=== PATIENT | male | born 1935 | race Caucasian/White ===

== ENCOUNTER → 2020-10-10 | Day surgery (SDC) | payer MEDICARE, OTHER ==
[~2020-10-10] MED LIST: ACTOS15 MG PO; ASPIRIN81 MG PO; BELLADONNA/OPIUM 30 MG SUPP RC ONE; CEFTRIAXONE 1 GM VIAL ONE; CYCLOBENZAPRINE5 MG PO; CYMBALTA30 MG; DETROL LA4 MG PO; FLOMAX0.4 MG PO; IOPAMIDOL 300MG/ML 50ML INFUS..BTL IV ONE; LIPITOR20 MG PO; NEURONTIN300 MG PO; NORVASC10 MG PO; PANTOPRAZOLE SO40 MG PO; ROBAXIN100 MG/1 M; SODIUM CHLORIDE 0.9% 50ML 50 ML ONE
[2020-10-10 09:32] LABS: BASOPHILS % 0.5 % (0.0-1.0); EOSINOPHILS # (AUTO) 0.2 (0.0-0.4); EOSINOPHILS % 2.5 % (0.0-6.0); HEMATOCRIT 30.4 % (38.2-49.6); LYMPHOCYTES # (AUTO) 1.7 (1.0-3.2); LYMPHOCYTES % 21.7 % (18.0-39.1); MEAN CORPUSCULAR HEMOGLOBIN 26.6 pg (28-32); MEAN CORPUSCULAR HGB CONC 29.6 g/dL (31-35); MEAN CORPUSCULAR VOLUME 89.9 fL (81-99); MONOCYTES # (AUTO) 0.7 (0.2-0.8); MONOCYTES % 9.1 % (4.4-11.3); NEUTROPHILS % 65.9 % (38.7-80.0); PLATELET COUNT 235 x10e3/uL (140-360); RED BLOOD COUNT 3.38 x10e6/uL (4.3-5.7); RED CELL DISTRIBUTION WIDTH 25.2 % (11.7-14.4)
[2020-10-10 09:57] LABS: ALBUMIN 2.8 g/dL (3.5-5.0); ALBUMIN/GLOBULIN RATIO 0.8 (0.8-2.0); ANION GAP 13.2 mmol/L (8-16); CREATININE, SERUM 1.15 mg/dL (0.72-1.25); POTASSIUM 4.2 mmol/L (3.5-5.1)
[2020-10-10 13:25] VITALS: BP 134/71
== END | disposition home or self-care (01) ==
LOC: OR 08:00
PROVIDERS: ATTEND Urology
DX: N35.919 Unspecified urethral stricture, male, unspecified site (principal); N13.30 Unspecified hydronephrosis; N32.3 Diverticulum of bladder; N20.0 Calculus of kidney; N13.8 Other obstructive and reflux uropathy; N32.89 Other specified disorders of bladder; R35.1 Nocturia; N39.0 Urinary tract infection, site not specified; N32.0 Bladder-neck obstruction; N39.41 Urge incontinence; N52.9 Male erectile dysfunction, unspecified; I10 Essential (primary) hypertension; K21.9 Gastro-esophageal reflux disease without esophagitis; E11.9 Type 2 diabetes mellitus without complications; E66.9 Obesity, unspecified; I49.3 Ventricular premature depolarization; F32.9 Major depressive disorder, single episode, unspecified; Z88.1 Allergy status to other antibiotic agents; Z86.73 Personal history of transient ischemic attack (TIA), and cerebral infarction without residual deficits; Z01.810 Encounter for preprocedural cardiovascular examination; Z01.812 Encounter for preprocedural laboratory examination; Z01.818 Encounter for other preprocedural examination; Z20.822 Contact with and (suspected) exposure to COVID-19; Z79.82 Long term (current) use of aspirin; Z87.442 Personal history of urinary calculi; Z85.46 Personal history of malignant neoplasm of prostate; Z98.890 Other specified postprocedural states; Z84.1 Family history of disorders of kidney and ureter
CPT/HCPCS: 36415; 52281; 71046; 74018; 74420; 80053; 84152; 85025; 87086; 87186; 93005; C1758; J0696; Q9967; U0002

== ENCOUNTER 2020-11-02 20:46 | Inpatient (IN) | payer MEDICARE, OTHER ==
[~2020-11-02] VITALS: Ht 190.5 cm; Wt 93.0 kg
[~2020-11-02 20:46] MED LIST changes: -BELLADONNA/OPIUM 30 MG SUPP RC ONE; -CEFTRIAXONE 1 GM VIAL ONE; -IOPAMIDOL 300MG/ML 50ML INFUS..BTL IV ONE; -SODIUM CHLORIDE 0.9% 50ML 50 ML ONE
[2020-11-02] MEDS ORDERED: CEFTRIAXONE 1 GM in SODIUM CHLORIDE 0.9% 50ML 50 ML IV SCH (22:00)
[2020-11-02 22:15] LABS: BASOPHILS # (AUTO) 0.1 (0.0-0.1); BASOPHILS % 0.9 % (0.0-1.0); EOSINOPHILS # (AUTO) 0.3 (0.0-0.4); EOSINOPHILS % 3.8 % (0.0-6.0); HEMATOCRIT 36.5 % (38.2-49.6); HEMOGLOBIN 10.8 g/dL (14.0-18.0); LYMPHOCYTES # (AUTO) 2.5 (1.0-3.2); MEAN CORPUSCULAR HEMOGLOBIN 27.7 pg (28-32); MEAN CORPUSCULAR HGB CONC 29.6 g/dL (31-35); MEAN CORPUSCULAR VOLUME 93.6 fL (81-99); MONOCYTES # (AUTO) 0.6 (0.2-0.8); MONOCYTES % 7.7 % (4.4-11.3); NEUTROPHILS # (AUTO) 4.1 (2.1-6.9); NEUTROPHILS % 54.3 % (38.7-80.0); PLATELET COUNT 199 x10e3/uL (140-360); RED CELL DISTRIBUTION WIDTH 20.8 % (11.7-14.4)
[2020-11-02 22:26] LABS: INR 0.95; PROTHROMBIN TIME 12.9 seconds (11.9-14.5)
[2020-11-02 22:27] LABS: PARTIAL THROMBOPLASTIN TIME 29.1 seconds (23.8-35.5)
[2020-11-02] MEDS: PIPERACILLIN/TAZOBACTAM 3.375 GM in SODIUM CHLORIDE 0.9% 50ML 50 ML IV SCH (22:30)
[2020-11-02 22:31] LABS: ANION GAP 11.7 mmol/L (8-16); CALCIUM 8.9 mg/dL (8.4-10.2); CREATININE, SERUM 1.17 mg/dL (0.72-1.25); POTASSIUM 3.7 mmol/L (3.5-5.1)
[2020-11-02] MEDS ORDERED: MORPHINE SULFATE INJ 2 MG/ML SYR IV STA (22:32)
[2020-11-02] MEDS ORDERED: ONDANSETRON HCL INJ 2MG/ML 2ML 2 MG/ML VIAL IV STA (22:32)
[2020-11-02] MEDS ORDERED: SODIUM CHLORIDE 0.9% 50ML 50 ML ONE (22:39)
[2020-11-02] MEDS ORDERED: SODIUM CHLORIDE 0.9% 1000ML 1,000 ML IV SCH (22:45)
[2020-11-02] MEDS ORDERED: MORPHINE SULFATE INJ 2 MG/ML SYR IV PRN (22:45)
[2020-11-03] VITALS (8 sets, daily range): BP systolic 117–159; BP diastolic 61–94
[2020-11-03] MEDS ORDERED: HYDROMORPHONE 1MG/1ML INJ IV PRN (01:00)
[2020-11-03] MEDS ORDERED: ONDANSETRON HCL INJ 2MG/ML 2ML 2 MG/ML VIAL IV PRN (02:00)
[2020-11-03 04:04] LABS: CLARITY,URINE CLEAR (CLEAR); COLOR,URINE YELLOW (YELLOW); KETONES,URINE NEGATIVE (NEGATIVE); LEUKOCYTE ESTERASE ,URINE NEGATIVE (NEGATIVE); NITRITE,URINE NEGATIVE (NEGATIVE); PROTEIN,URINE DIPSTICK NEGATIVE (NEGATIVE); URINE UROBILINOGEN 0.2 mg/dL (0.2 - 1)
[2020-11-03 04:35] LABS: BACTERIA,URINE FEW /HPF; EPITHELIAL CELLS,URINE FEW /LPF; RBC,URINE >50 /HPF (0-5)
[2020-11-03] MEDS: PIPERACILLIN/TAZOBACTAM 3.375 GM in SODIUM CHLORIDE 0.9% 50ML 50 ML IV SCH ×3 (05:41→22:08)
[2020-11-03 08:37] LABS: BASOPHILS % 0.7 % (0.0-1.0); EOSINOPHILS # (AUTO) 0.2 (0.0-0.4); EOSINOPHILS % 3.6 % (0.0-6.0); HEMATOCRIT 35.8 % (38.2-49.6); HEMOGLOBIN 10.4 g/dL (14.0-18.0); LYMPHOCYTES # (AUTO) 1.8 (1.0-3.2); LYMPHOCYTES % 32.7 % (18.0-39.1); MEAN CORPUSCULAR HEMOGLOBIN 27.6 pg (28-32); MEAN CORPUSCULAR HGB CONC 29.1 g/dL (31-35); MONOCYTES # (AUTO) 0.4 (0.2-0.8); NEUTROPHILS % 54.8 % (38.7-80.0); PLATELET COUNT 175 x10e3/uL (140-360); RED BLOOD COUNT 3.77 x10e6/uL (4.3-5.7); RED CELL DISTRIBUTION WIDTH 20.9 % (11.7-14.4)
[2020-11-03 08:57] LABS: ANION GAP 9.5 mmol/L (8-16); CALCIUM 8.6 mg/dL (8.4-10.2); CREATININE, SERUM 1.16 mg/dL (0.72-1.25); POTASSIUM 3.5 mmol/L (3.5-5.1)
[2020-11-03] MEDS ORDERED: GABAPENTIN 300 MG CAP PO SCH (09:00)
[2020-11-03] MEDS ORDERED: CYCLOBENZAPRINE HCL 10 MG TAB PO SCH (09:30)
[2020-11-03] MEDS: PANTOPRAZOLE SOD 40 MG TABEC PO SCH (10:00)
[2020-11-03] MEDS: DULOXETINE HCL 30 MG DELAYED RELEASE PO SCH (10:00)
[2020-11-03] MEDS: AMLODIPINE BESYLATE 10 MG TAB PO SCH (10:00)
[2020-11-03] MEDS: PIOGLITAZONE HCL 15 MG TAB PO SCH (10:00)
[2020-11-03] MEDS: GABAPENTIN 300 MG CAP PO SCH (16:46)
[2020-11-03] MEDS: METHOCARBAMOL 500 MG TAB PO SCH (16:47)
[2020-11-03] MEDS: ATORVASTATIN 40 MG TAB PO SCH (21:00)
[2020-11-03] MEDS: TAMSULOSIN HCL 0.4 MG CAP PO SCH (21:00)
[2020-11-04] VITALS: BP 140/37
[2020-11-04 04:00] VITALS: BP 148/73
[2020-11-04 05:22] LABS: BASOPHILS # (AUTO) 0.1 (0.0-0.1); EOSINOPHILS # (AUTO) 0.3 (0.0-0.4); EOSINOPHILS % 5.3 % (0.0-6.0); HEMOGLOBIN 10.5 g/dL (14.0-18.0); LYMPHOCYTES % 31.4 % (18.0-39.1); MEAN CORPUSCULAR HEMOGLOBIN 27.9 pg (28-32); MEAN CORPUSCULAR VOLUME 93.1 fL (81-99); MONOCYTES # (AUTO) 0.5 (0.2-0.8); MONOCYTES % 7.2 % (4.4-11.3); NEUTROPHILS # (AUTO) 3.4 (2.1-6.9); NEUTROPHILS % 54.8 % (38.7-80.0); PLATELET COUNT 168 x10e3/uL (140-360); RED BLOOD COUNT 3.76 x10e6/uL (4.3-5.7); RED CELL DISTRIBUTION WIDTH 20.7 % (11.7-14.4)
[2020-11-04 05:51] LABS: ALBUMIN 2.7 g/dL (3.5-5.0); ANION GAP 10.7 mmol/L (8-16); CALCIUM 8.8 mg/dL (8.4-10.2); CREATININE, SERUM 1.1 mg/dL (0.72-1.25); POTASSIUM 3.7 mmol/L (3.5-5.1)
[2020-11-04 07:48] VITALS: BP 136/60
[2020-11-04] MEDS: PIPERACILLIN/TAZOBACTAM 2.25 GM in SODIUM CHLORIDE 0.9% 50ML 50 ML IV SCH ×2 (08:00→16:30)
[2020-11-04 08:01] VITALS: BP 136/60
[2020-11-04] MEDS: GABAPENTIN 300 MG CAP PO SCH ×2 (09:00→16:31)
[2020-11-04] MEDS: METHOCARBAMOL 500 MG TAB PO SCH ×2 (09:00→16:31)
[2020-11-04] MEDS ORDERED: LISINOPRIL 20 MG TAB PO SCH (09:00)
[2020-11-04] MEDS ORDERED: LIDOCAINE HCL 1% LOCAL INJ 20 ML VIAL ONE (09:55)
[2020-11-04] MEDS ORDERED: IOPAMIDOL 300MG/ML 100 ML INFUS..BTL IV ONE (09:55)
[2020-11-04] MEDS ORDERED: SODIUM CHLORIDE 0.9% 250ML 250 ML ONE (09:56)
[2020-11-04] MEDS ORDERED: SODIUM CHLORIDE 0.9% 500ML 500 ML ONE (09:56)
[2020-11-04] MEDS ORDERED: FENTANYL CITRATE/PF 100MCG/2 ML INJ ONE (10:32)
[2020-11-04] MEDS ORDERED: MIDAZOLAM HCL 2 MG/2 ML VIAL ONE (10:32)
[2020-11-04] MEDS: DULOXETINE HCL 30 MG DELAYED RELEASE PO SCH (16:29)
[2020-11-04] MEDS: PIOGLITAZONE HCL 15 MG TAB PO SCH (16:29)
[2020-11-04] MEDS: PANTOPRAZOLE SOD 40 MG TABEC PO SCH (16:30)
[2020-11-04] MEDS: AMLODIPINE BESYLATE 10 MG TAB PO SCH (16:31)
[2020-11-04] MEDS: HYDROCODONE/APAP 5MG-325MG TAB PO PRN ×2 (16:35→21:32)
[2020-11-04 20:00] VITALS: BP 140/63
[2020-11-04 20:10] VITALS: BP 140/63
[2020-11-04] MEDS: ATORVASTATIN 40 MG TAB PO SCH (21:19)
[2020-11-04] MEDS: TAMSULOSIN HCL 0.4 MG CAP PO SCH (21:19)
[2020-11-05] VITALS: BP 125/65
[2020-11-05] MEDS: PIPERACILLIN/TAZOBACTAM 2.25 GM in SODIUM CHLORIDE 0.9% 50ML 50 ML IV SCH (00:01)
[2020-11-05 04:00] VITALS: BP 133/75
[2020-11-05 06:31] LABS: BASOPHILS # (AUTO) 0.1 (0.0-0.1); BASOPHILS % 0.9 % (0.0-1.0); EOSINOPHILS # (AUTO) 0.2 (0.0-0.4); HEMATOCRIT 38.6 % (38.2-49.6); HEMOGLOBIN 11.5 g/dL (14.0-18.0); LYMPHOCYTES # (AUTO) 1.9 (1.0-3.2); LYMPHOCYTES % 24.2 % (18.0-39.1); MEAN CORPUSCULAR HEMOGLOBIN 27.9 pg (28-32); MEAN CORPUSCULAR HGB CONC 29.8 g/dL (31-35); MEAN CORPUSCULAR VOLUME 93.7 fL (81-99); MONOCYTES # (AUTO) 0.6 (0.2-0.8); MONOCYTES % 7.8 % (4.4-11.3); NEUTROPHILS # (AUTO) 5.1 (2.1-6.9); NEUTROPHILS % 63.8 % (38.7-80.0); PLATELET COUNT 161 x10e3/uL (140-360); RED BLOOD COUNT 4.12 x10e6/uL (4.3-5.7); RED CELL DISTRIBUTION WIDTH 20.4 % (11.7-14.4)
[2020-11-05 06:49] LABS: ANION GAP 13.8 mmol/L (8-16); CALCIUM 8.9 mg/dL (8.4-10.2); CREATININE, SERUM 0.97 mg/dL (0.72-1.25); POTASSIUM 3.8 mmol/L (3.5-5.1)
[2020-11-05 07:48] VITALS: BP 153/75
[2020-11-05] MEDS ORDERED: HYDROCODON-ACE1 EA11 PO (08:03)
[2020-11-05 08:38] LABS: THYROID STIMULATING HORMONE 1.534 uIU/mL (0.350-4.940)
[2020-11-05 09:00] VITALS: BP 153/75
[2020-11-05] MEDS ORDERED: OXYBUTYNIN CHLORIDE 5 MG TAB PO SCH (09:00)
== END 2020-11-05 09:38 | disposition home or self-care (01) | DRG 697 ==
LOC: ER 20:52 → ERHOLD 22:37 → MED/SURG3 11-03 00:18
PROVIDERS: ADMIT Internal Medicine; ATTEND Internal Medicine
PROC: 0T9B30Z Drainage of Bladder with Drainage Device, Percutaneous Approach (ICD-10-PCS; principal; 2020-11-04)
PROC: BT40ZZZ Ultrasonography of Bladder (ICD-10-PCS; 2020-11-04)
DX: N35.919 Unspecified urethral stricture, male, unspecified site (principal); N12 Tubulo-interstitial nephritis, not specified as acute or chronic; S37.022A Major contusion of left kidney, initial encounter; E11.22 Type 2 diabetes mellitus with diabetic chronic kidney disease; I12.9 Hypertensive chronic kidney disease with stage 1 through stage 4 chronic kidney disease, or unspecified chronic kidney disease; N18.30 Chronic kidney disease, stage 3 unspecified; Z86.73 Personal history of transient ischemic attack (TIA), and cerebral infarction without residual deficits; K21.9 Gastro-esophageal reflux disease without esophagitis; E11.42 Type 2 diabetes mellitus with diabetic polyneuropathy; E78.5 Hyperlipidemia, unspecified; Z85.46 Personal history of malignant neoplasm of prostate; Z88.1 Allergy status to other antibiotic agents; Z88.8 Allergy status to other drugs, medicaments and biological substances; D64.9 Anemia, unspecified; R82.81 Pyuria; N28.1 Cyst of kidney, acquired; K80.80 Other cholelithiasis without obstruction; B96.5 Pseudomonas (aeruginosa) (mallei) (pseudomallei) as the cause of diseases classified elsewhere; N28.9 Disorder of kidney and ureter, unspecified; R33.8 Other retention of urine
CPT/HCPCS: 36415; 51102; 74176; 74470; 76942; 80048; 80053; 80061; 81001; 83036; 84443; 85025; 85610; 85730; 87086; 87186; 99152; 99153; 99284; J1170; J2001; J2250; J2270; J2405; J2543; J3010; J7030; J7040; J7050; Q9967; U0002

== ENCOUNTER 2022-06-28 10:42 | Outpatient (RCR) | payer MEDICARE, OTHER ==
[~2022-06-28 10:42] MED LIST changes: +HYDROCODON-ACE1 EA11 PO
== END 2022-07-07 ==
LOC: PT 10:42
PROVIDERS: ATTEND Internal Medicine
DX: R26.89 Other abnormalities of gait and mobility (principal)

== ENCOUNTER 2022-07-08 08:46 | Outpatient (RCR) | payer MEDICARE, OTHER | END 2022-08-06 23:59 | disposition home or self-care (01) | LOC: PT 08:46 | PROVIDERS: ATTEND Internal Medicine | DX: R26.89 Other abnormalities of gait and mobility (principal) ==

== ENCOUNTER 2022-07-08 08:48 | Outpatient (RCR) | payer MEDICARE, OTHER | END 2022-08-06 23:59 | disposition home or self-care (01) | LOC: PT 08:48 | PROVIDERS: ATTEND Internal Medicine | DX: R26.89 Other abnormalities of gait and mobility (principal) ==

== ENCOUNTER 2022-07-14 10:45 | Outpatient (RCR) | payer MEDICARE, OTHER | END 2022-08-06 | LOC: PT 10:45 | PROVIDERS: ATTEND Internal Medicine | DX: R26.89 Other abnormalities of gait and mobility (principal) ==

== ENCOUNTER 2022-11-19 03:58 | Inpatient (IN) | payer MEDICARE, OTHER ==
[~2022-11-19] VITALS: Ht 190.5 cm; Wt 93.0 kg
[2022-11-19] VITALS (7 sets, daily range): BP systolic 112–169; BP diastolic 61–72; PULSE 53–72; RESP 15–18; TEMP 97.1–98.5; O2SAT 95–100
[2022-11-19] MEDS ORDERED: ONDANSETRON HCL INJ 2MG/ML 2ML 2 MG/ML VIAL IV STA ×2 (04:01→04:58)
[2022-11-19] MEDS ORDERED: SODIUM CHLORIDE 0.9% 1000ML 2,000 ML IV STA (04:01)
[2022-11-19 04:32] LABS: BASOPHILS % 0.4 % (0.0-1.0); EOSINOPHILS % 0.1 % (0.0-6.0); HEMATOCRIT 44.1 % (38.2-49.6); HEMOGLOBIN 15.1 g/dL (14.0-18.0); LYMPHOCYTES % 21.2 % (18.0-39.1); MEAN CORPUSCULAR HEMOGLOBIN 28.9 pg (28-32); MEAN CORPUSCULAR HGB CONC 34.2 g/dL (31-35); MEAN CORPUSCULAR VOLUME 84.3 fL (81-99); MONOCYTES # (AUTO) 0.5 (0.2-0.8); MONOCYTES % 5.6 % (4.4-11.3); NEUTROPHILS # (AUTO) 6.9 (2.1-6.9); NEUTROPHILS % 72.5 % (38.7-80.0); PLATELET COUNT 198 x10e3/uL (140-360); RED BLOOD COUNT 5.23 x10e6/uL (4.3-5.7); RED CELL DISTRIBUTION WIDTH 14.4 % (11.7-14.4); WHITE BLOOD COUNT 9.56 x10e3/uL (4.8-10.8)
[2022-11-19 04:49] LABS: ALBUMIN 4.3 g/dL (3.5-5.0); ALBUMIN/GLOBULIN RATIO 1.4 (0.8-2.0); ANION GAP 17.9 mmol/L (8-16); CALCIUM 9.6 mg/dL (8.4-10.2); CREATININE, SERUM 1.24 mg/dL (0.72-1.25); POTASSIUM 3.9 mmol/L (3.5-5.1)
[2022-11-19] MEDS ORDERED: Morphine 4mg INJECTION 4 MG/ML INJ IV STA (04:58)
[2022-11-19] MEDS ORDERED: IOPAMIDOL 370 MG/ML 100 ML INFUS..BTL INJ ONE (05:04)
[2022-11-19] MEDS: SODIUM CHLORIDE 0.9% 1000ML 1,000 ML IV SCH ×3 (06:22→22:00)
[2022-11-19] MEDS: Morphine 4mg INJECTION 4 MG/ML INJ IV PRN ×2 (08:52→12:54)
[2022-11-19] MEDS: ONDANSETRON HCL INJ 2MG/ML 2ML 2 MG/ML VIAL IV PRN ×3 (08:52→20:32)
[2022-11-19 09:16] LABS: BACTERIA,URINE MODERATE /HPF; CLARITY,URINE SL CLOUDY (CLEAR); COLOR,URINE YELLOW (YELLOW); EPITHELIAL CELLS,URINE FEW /LPF; KETONES,URINE 2+ (NEGATIVE); LEUKOCYTE ESTERASE ,URINE NEGATIVE (NEGATIVE); NITRITE,URINE NEGATIVE (NEGATIVE); PROTEIN,URINE DIPSTICK NEGATIVE (NEGATIVE); URINE UROBILINOGEN 0.2 mg/dL (0.2 - 1)
[2022-11-19 09:55] LABS: CHOL/HDL RATIO 2.3 (3.9-4.7)
[2022-11-19 10:05] LABS: B-TYPE NATRIURETIC PEPTIDE2 235.9 pg/mL (0-100)
[2022-11-19] MEDS ORDERED: OXYBUTYNIN CHLOR5 MG PO (16:36)
[2022-11-19] MEDS ORDERED: DESVENLAFAXINE50 MG PO (16:36)
[2022-11-19] MEDS ORDERED: CYCLOBENZAPRINE10 MG PO (16:36)
[2022-11-19] MEDS ORDERED: METHADONE HCL5 MG PO (16:36)
[2022-11-19] MEDS ORDERED: CONSTULOSE10 GM/15 M PO (16:36)
[2022-11-19] MEDS ORDERED: AMITRIPTYLINE H25 MG PO (16:36)
[2022-11-19] MEDS ORDERED: OMEPRAZOLE20 MG PO (16:36)
[2022-11-19] MEDS ORDERED: LOSARTAN POTASS50 MG PO (16:36)
[2022-11-19] MEDS ORDERED: ESZOPICLONE3 MG PO (16:36)
[2022-11-19] MEDS: AMLODIPINE BESYLATE 10 MG TAB PO SCH (17:23)
[2022-11-20] VITALS (8 sets, daily range): BP systolic 135–175; BP diastolic 61–79; PULSE 51–72; RESP 16–20; TEMP 97.1–98.2; O2SAT 93–100
[2022-11-20] MEDS: Morphine 4mg INJECTION 4 MG/ML INJ IV PRN ×2 (00:08→20:37)
[2022-11-20] MEDS: ATORVASTATIN 40 MG TAB PO SCH ×2 (00:09→20:22)
[2022-11-20 07:25] LABS: BASOPHILS # (AUTO) 0.1 (0.0-0.1); BASOPHILS % 0.6 % (0.0-1.0); EOSINOPHILS # (AUTO) 0.1 (0.0-0.4); EOSINOPHILS % 1.1 % (0.0-6.0); HEMATOCRIT 39.6 % (38.2-49.6); HEMOGLOBIN 12.8 g/dL (14.0-18.0); LYMPHOCYTES # (AUTO) 2.3 (1.0-3.2); LYMPHOCYTES % 25.5 % (18.0-39.1); MEAN CORPUSCULAR HEMOGLOBIN 28.5 pg (28-32); MEAN CORPUSCULAR HGB CONC 32.3 g/dL (31-35); MEAN CORPUSCULAR VOLUME 88.2 fL (81-99); MONOCYTES # (AUTO) 0.7 (0.2-0.8); MONOCYTES % 8.2 % (4.4-11.3); NEUTROPHILS # (AUTO) 5.7 (2.1-6.9); NEUTROPHILS % 64.3 % (38.7-80.0); PLATELET COUNT 166 x10e3/uL (140-360); RED BLOOD COUNT 4.49 x10e6/uL (4.3-5.7); WHITE BLOOD COUNT 8.89 x10e3/uL (4.8-10.8)
[2022-11-20] MEDS ORDERED: PANTOPRAZOLE SOD 40 MG TABEC PO SCH ×2 (07:30→09:00)
[2022-11-20 07:59] LABS: ALBUMIN 3.2 g/dL (3.5-5.0); ALBUMIN/GLOBULIN RATIO 1.2 (0.8-2.0); ANION GAP 11.6 mmol/L (8-16); CALCIUM 8.5 mg/dL (8.4-10.2); CREATININE, SERUM 1.07 mg/dL (0.72-1.25); POTASSIUM 3.6 mmol/L (3.5-5.1)
[2022-11-20] MEDS: SODIUM CHLORIDE 0.9% 1000ML 1,000 ML IV SCH ×3 (08:37→20:24)
[2022-11-20] MEDS: AMLODIPINE BESYLATE 10 MG TAB PO SCH (09:40)
[2022-11-20] MEDS: OXYBUTYNIN CHLORIDE 5 MG TAB PO SCH (20:21)
[2022-11-20] MEDS: ONDANSETRON HCL INJ 2MG/ML 2ML 2 MG/ML VIAL IV PRN (20:53)
[2022-11-21] VITALS (10 sets, daily range): BP systolic 107–156; BP diastolic 56–86; PULSE 57–95; RESP 16–20; TEMP 97.9–98.7; O2SAT 96–99
[2022-11-21] MEDS: METOCLOPRAMIDE HCL 10 MG/2ML VIAL IV SCH ×4 (04:48→17:22)
[2022-11-21] MEDS: SODIUM CHLORIDE 0.9% 1000ML 1,000 ML IV SCH ×3 (06:00→22:00)
[2022-11-21] MEDS: OXYBUTYNIN CHLORIDE 5 MG TAB PO SCH ×2 (08:49→17:21)
[2022-11-21] MEDS: AMLODIPINE BESYLATE 10 MG TAB PO SCH (08:50)
[2022-11-21 09:25] LABS: BASOPHILS % 0.4 % (0.0-1.0); EOSINOPHILS # (AUTO) 0.2 (0.0-0.4); HEMATOCRIT 41.4 % (38.2-49.6); HEMOGLOBIN 13.7 g/dL (14.0-18.0); LYMPHOCYTES # (AUTO) 1.6 (1.0-3.2); LYMPHOCYTES % 17.5 % (18.0-39.1); MEAN CORPUSCULAR HEMOGLOBIN 28.9 pg (28-32); MEAN CORPUSCULAR HGB CONC 33.1 g/dL (31-35); MEAN CORPUSCULAR VOLUME 87.3 fL (81-99); MONOCYTES # (AUTO) 0.6 (0.2-0.8); MONOCYTES % 7.1 % (4.4-11.3); NEUTROPHILS # (AUTO) 6.6 (2.1-6.9); NEUTROPHILS % 72.8 % (38.7-80.0); PLATELET COUNT 172 x10e3/uL (140-360); RED BLOOD COUNT 4.74 x10e6/uL (4.3-5.7); RED CELL DISTRIBUTION WIDTH 14.6 % (11.7-14.4); WHITE BLOOD COUNT 9.04 x10e3/uL (4.8-10.8)
[2022-11-21 09:47] LABS: ALBUMIN 3.2 g/dL (3.5-5.0); ALBUMIN/GLOBULIN RATIO 1.1 (0.8-2.0); ANION GAP 10.7 mmol/L (8-16); CALCIUM 8.6 mg/dL (8.4-10.2); CREATININE, SERUM 1.02 mg/dL (0.72-1.25); POTASSIUM 3.7 mmol/L (3.5-5.1)
[2022-11-21] MEDS: ATORVASTATIN 40 MG TAB PO SCH (20:20)
[2022-11-21] MEDS: Morphine 4mg INJECTION 4 MG/ML INJ IV PRN (22:22)
[2022-11-21] MEDS ORDERED: BISACODYL 5 MG TAB EC PO ONE (23:45)
[2022-11-22] VITALS (9 sets, daily range): BP systolic 135–160; BP diastolic 55–83; PULSE 60–71; RESP 16–19; TEMP 97.8–99; O2SAT 98–100
[2022-11-22] MEDS: METOCLOPRAMIDE HCL 10 MG/2ML VIAL IV SCH ×4 (00:16→18:09)
[2022-11-22] MEDS ORDERED: BISACODYL 5 MG TAB EC PO ONE (00:30)
[2022-11-22] MEDS ORDERED: CITRATE OF MAGNESIA 300ML BOTTLE PO ONE (05:00)
[2022-11-22] MEDS: SODIUM CHLORIDE 0.9% 1000ML 1,000 ML IV SCH (06:30)
[2022-11-22 08:11] LABS: BASOPHILS # (AUTO) 0.1 (0.0-0.1); BASOPHILS % 0.5 % (0.0-1.0); EOSINOPHILS # (AUTO) 0.2 (0.0-0.4); EOSINOPHILS % 1.6 % (0.0-6.0); HEMATOCRIT 42.2 % (38.2-49.6); HEMOGLOBIN 14.1 g/dL (14.0-18.0); LYMPHOCYTES # (AUTO) 1.8 (1.0-3.2); LYMPHOCYTES % 18.2 % (18.0-39.1); MEAN CORPUSCULAR HEMOGLOBIN 28.7 pg (28-32); MEAN CORPUSCULAR HGB CONC 33.4 g/dL (31-35); MEAN CORPUSCULAR VOLUME 85.8 fL (81-99); MONOCYTES # (AUTO) 0.7 (0.2-0.8); MONOCYTES % 7.6 % (4.4-11.3); NEUTROPHILS # (AUTO) 6.9 (2.1-6.9); NEUTROPHILS % 71.9 % (38.7-80.0); PLATELET COUNT 187 x10e3/uL (140-360); RED BLOOD COUNT 4.92 x10e6/uL (4.3-5.7); RED CELL DISTRIBUTION WIDTH 14.3 % (11.7-14.4); WHITE BLOOD COUNT 9.63 x10e3/uL (4.8-10.8)
[2022-11-22] MEDS ORDERED: PROPOFOL IV EMULSION 10 MG/ML 20 ML VIAL ONE (08:50)
[2022-11-22] MEDS ORDERED: EPHEDRINE SULFATE INJ 50 MG/ML VIAL ONE (08:50)
[2022-11-22] MEDS ORDERED: LIDOCAINE HCL 2% LOCAL INJ 5 ML SDV VIAL INJ ONE (08:50)
[2022-11-22 08:53] LABS: ANION GAP 14.7 mmol/L (8-16); CALCIUM 8.5 mg/dL (8.4-10.2); CREATININE, SERUM 1.01 mg/dL (0.72-1.25); POTASSIUM 3.7 mmol/L (3.5-5.1)
[2022-11-22] MEDS: AMLODIPINE BESYLATE 10 MG TAB PO SCH (09:04)
[2022-11-22] MEDS: OXYBUTYNIN CHLORIDE 5 MG TAB PO SCH ×2 (09:04→18:09)
[2022-11-22] MEDS ORDERED: CYCLOBENZAPRINE HCL 10 MG TAB PO PRN (13:30)
[2022-11-22] MEDS ORDERED: AMITRIPTYLINE HCL 25 MG TAB PO SCH (21:00)
[2022-11-22] MEDS ORDERED: LOSARTAN POTASSIUM 25 MG TAB PO SCH (21:00)
[2022-11-22] MEDS ORDERED: ZOLPIDEM TARTRATE 5 MG TAB PO SCH (21:00)
[2022-11-22] MEDS ORDERED: NON-FORMULARY MEDICATION (Losartan Potassium 1 TAB) PO SCH (21:00)
[2022-11-22] MEDS ORDERED: ESZOPICLONE PO SCH (21:00)
[2022-11-22] MEDS: ATORVASTATIN 40 MG TAB PO SCH (22:15)
[2022-11-23] MEDS: METOCLOPRAMIDE HCL 10 MG/2ML VIAL IV SCH ×3 (00:15→12:25)
[2022-11-23 00:50] VITALS: BP 148/63; PULSE 81; RESP 18; TEMP 98; O2SAT 98
[2022-11-23 04:00] VITALS: BP 146/65; PULSE 74; RESP 18; TEMP 97.7; O2SAT 100
[2022-11-23 08:45] VITALS: BP 164/81; PULSE 80; RESP 18; TEMP 97.8; O2SAT 97
[2022-11-23 08:58] VITALS: BP 164/81; PULSE 80; RESP 18; TEMP 97.8; O2SAT 97
[2022-11-23] MEDS ORDERED: DESVENLAFAXINE SUCCINATE 50 MG TAB.SR.24H PO SCH (09:00)
[2022-11-23] MEDS: AMLODIPINE BESYLATE 10 MG TAB PO SCH (09:36)
[2022-11-23] MEDS: OXYBUTYNIN CHLORIDE 5 MG TAB PO SCH (09:36)
[2022-11-23 12:28] VITALS: BP 139/79; PULSE 71; RESP 19; TEMP 98.1; O2SAT 96
[2022-11-23] MEDS ORDERED: METOCLOPRAMIDE H5 MG PO (13:28)
[2022-11-23] MEDS ORDERED: ONDANSETRON HCL 4 MG ORAL DISINTEGRATING TAB PO PRN (15:30)
[2022-11-23] MEDS ORDERED: METOCLOPRAMIDE HCL 10 MG TAB PO SCH (16:30)
== END 2022-11-23 15:31 | disposition home or self-care (01) | DRG 689 ==
LOC: ER 04:00 → ERHOLD 05:48 → MED/SURG2 14:58
PROVIDERS: ADMIT Internal Medicine; ATTEND Internal Medicine
PROC: 0DB68ZX Excision of Stomach, Via Natural or Artificial Opening Endoscopic, Diagnostic (ICD-10-PCS; 2022-11-22)
PROC: 0DB98ZX Excision of Duodenum, Via Natural or Artificial Opening Endoscopic, Diagnostic (ICD-10-PCS; principal; 2022-11-22 17:05)
DX: N39.0 Urinary tract infection, site not specified (principal); I50.33 Acute on chronic diastolic (congestive) heart failure; Z16.24 Resistance to multiple antibiotics; K29.70 Gastritis, unspecified, without bleeding; K44.9 Diaphragmatic hernia without obstruction or gangrene; R11.2 Nausea with vomiting, unspecified; I11.0 Hypertensive heart disease with heart failure; E78.5 Hyperlipidemia, unspecified; I49.3 Ventricular premature depolarization; B96.5 Pseudomonas (aeruginosa) (mallei) (pseudomallei) as the cause of diseases classified elsewhere; K20.90 Esophagitis, unspecified without bleeding; K80.20 Calculus of gallbladder without cholecystitis without obstruction; K31.7 Polyp of stomach and duodenum; B96.1 Klebsiella pneumoniae [K. pneumoniae] as the cause of diseases classified elsewhere; Z86.73 Personal history of transient ischemic attack (TIA), and cerebral infarction without residual deficits; Z85.46 Personal history of malignant neoplasm of prostate; Z20.822 Contact with and (suspected) exposure to COVID-19
CPT/HCPCS: 36415; 43239; 71045; 74177; 76705; 78226; 80048; 80053; 80061; 81001; 82550; 83036; 83690; 83880; 84484; 85025; 87086; 87186; 87400; 88305; 88342; 93005; 93306; 93970; 94799; 99284; A9537; J0696; J2001; J2270; J2405; J2543; J2765; J7030; Q9967; U0002

== ENCOUNTER → 2023-06-15 | Day surgery (SDC) | payer MEDICARE, OTHER ==
[2023-06-13 13:48] LABS: BASOPHILS # (AUTO) 0.1 (0.0-0.1); BASOPHILS % 0.8 % (0.0-1.0); EOSINOPHILS # (AUTO) 0.2 (0.0-0.4); EOSINOPHILS % 2.5 % (0.0-6.0); HEMATOCRIT 42.5 % (38.2-49.6); HEMOGLOBIN 13.3 g/dL (14.0-18.0); LYMPHOCYTES # (AUTO) 1.9 (1.0-3.2); LYMPHOCYTES % 26.5 % (18.0-39.1); MEAN CORPUSCULAR HEMOGLOBIN 28.7 pg (28-32); MEAN CORPUSCULAR HGB CONC 31.3 g/dL (31-35); MEAN CORPUSCULAR VOLUME 91.6 fL (81-99); MONOCYTES # (AUTO) 0.5 (0.2-0.8); MONOCYTES % 7.4 % (4.4-11.3); NEUTROPHILS # (AUTO) 4.5 (2.1-6.9); NEUTROPHILS % 62.5 % (38.7-80.0); PLATELET COUNT 196 x10e3/uL (140-360); RED BLOOD COUNT 4.64 x10e6/uL (4.3-5.7); RED CELL DISTRIBUTION WIDTH 14.3 % (11.7-14.4); WHITE BLOOD COUNT 7.13 x10e3/uL (4.8-10.8)
[2023-06-13 14:11] LABS: ANION GAP 12.8 mmol/L (8-16); CREATININE, SERUM 1.27 mg/dL (0.72-1.25); POTASSIUM 4.8 mmol/L (3.5-5.1)
[~2023-06-15] MED LIST changes: +AMITRIPTYLINE H25 MG PO; +BOTULINUM TOXIN TYPE A 100 UNIT VIAL IM ONE; +CELEXA20 MG PO; +CEPHALEXIN250 M1 PO; +CONSTULOSE10 GM/15 M PO; +CRESTOR10 MG PO; +CYCLOBENZAPRINE10 MG PO; +CYMBALTA20 MG PO; +DESVENLAFAXINE50 MG PO; +DITROPAN PO; +ESZOPICLONE3 MG PO; +FENTANYL CITRATE/PF 100MCG/2 ML INJ ONE; +GABAPENTIN100 MG PO; +IOPAMIDOL 610MG/1ML 300 MG/ML VIAL IV ONE; +LIDOCAINE HCL 2% LOCAL INJ 5 ML SDV VIAL INJ ONE; +LOSARTAN POTASS50 MG PO; +MAGNESIUM OXID400 MG PO; +METHADONE HCL5 MG PO; +METOCLOPRAMIDE H5 MG PO; +OMEPRAZOLE20 MG PO; +OMEPRAZOLE40 MG PO; +ONDANSETRON HCL INJ 2MG/ML 2ML 2 MG/ML VIAL ONE; +OXYBUTYNIN CHLOR5 MG PO; +PROPOFOL IV EMULSION 10 MG/ML 20 ML VIAL ONE; +PYRIDIUM100 MG PO; +SEVOFLURANE INHAL SOLN 250 ML PEN BTL ONE; +TEMAZEPAM15 MG PO; +VESICARE5 MG PO; +[UNRECOGNIZED DRUG - CODE]
[2023-06-15] MEDS: CEFTRIAXONE 1 GM VIAL ONE (09:50)
[2023-06-15] MEDS: LACTATED RINGER'S 1,000 ML ONE (09:50)
[2023-06-15] MEDS: GENTAMICIN 80 MG/100 ML IV ONE (14:30)
[2023-06-15] MEDS: NS IV ONE (14:30)
[2023-06-15] MEDS: GENTAMICIN 80MG/NS 100 ML 100 ML IV ONE (14:30)
[2023-06-15 15:15] VITALS: BP 168/70; PULSE 65; RESP 17; TEMP 97.1; O2SAT 97
== END | disposition home or self-care (01) ==
LOC: OR 09:42
PROVIDERS: ATTEND Urology
DX: N39.41 Urge incontinence (principal); N39.0 Urinary tract infection, site not specified; N32.89 Other specified disorders of bladder; Z93.50 Unspecified cystostomy status; Z87.442 Personal history of urinary calculi; N28.1 Cyst of kidney, acquired; C61 Malignant neoplasm of prostate; G47.33 Obstructive sleep apnea (adult) (pediatric); I10 Essential (primary) hypertension; E11.9 Type 2 diabetes mellitus without complications; E78.00 Pure hypercholesterolemia, unspecified; E66.9 Obesity, unspecified; E78.5 Hyperlipidemia, unspecified; R06.02 Shortness of breath; K21.9 Gastro-esophageal reflux disease without esophagitis; M06.9 Rheumatoid arthritis, unspecified; F41.9 Anxiety disorder, unspecified; F32.A Depression, unspecified; Z01.812 Encounter for preprocedural laboratory examination; Z79.899 Other long term (current) drug therapy; Z86.73 Personal history of transient ischemic attack (TIA), and cerebral infarction without residual deficits; Z84.1 Family history of disorders of kidney and ureter
CPT/HCPCS: 36415; 52287; 74420; 80048; 85025; 87086; 87186; C1758; J0587; J0696; J1580; J2001; J2405; J2704; J3010; J7121; Q9967

== ENCOUNTER → 2024-01-04 | Day surgery (SDC) | payer MEDICARE, OTHER ==
[~2024-01-04] MED LIST changes: +ACETAMINOPHEN 1000 MG/100 ML 100 ML IV ONE; +DEXAMETHASONE SOD PHOS INJ 4 MG/ML SDV ONE; -IOPAMIDOL 610MG/1ML 300 MG/ML VIAL IV ONE; +REPATHA SY140 MG/1 M INJ; -SEVOFLURANE INHAL SOLN 250 ML PEN BTL ONE
[2024-01-04] MEDS: LACTATED RINGER'S 1,000 ML ONE (13:41)
[2024-01-04 13:47] LABS: BASOPHILS # (AUTO) 0.1 (0.0-0.1); BASOPHILS % 0.7 % (0.0-1.0); EOSINOPHILS # (AUTO) 0.2 (0.0-0.4); EOSINOPHILS % 2.2 % (0.0-6.0); HEMATOCRIT 46.1 % (38.2-49.6); LYMPHOCYTES # (AUTO) 2.2 (1.0-3.2); LYMPHOCYTES % 21.7 % (18.0-39.1); MEAN CORPUSCULAR HEMOGLOBIN 28.7 pg (28-32); MEAN CORPUSCULAR HGB CONC 30.4 g/dL (31-35); MEAN CORPUSCULAR VOLUME 94.5 fL (81-99); MONOCYTES # (AUTO) 0.8 (0.2-0.8); MONOCYTES % 7.9 % (4.4-11.3); NEUTROPHILS # (AUTO) 6.9 (2.1-6.9); NEUTROPHILS % 67.2 % (38.7-80.0); PLATELET COUNT 194 x10e3/uL (140-360); RED BLOOD COUNT 4.88 x10e6/uL (4.3-5.7); RED CELL DISTRIBUTION WIDTH 14.6 % (11.7-14.4)
[2024-01-04] MEDS: GENTAMICIN 80MG/NS 100 ML 200 ML IV ONE (13:51)
[2024-01-04] MEDS: ONDANSETRON HCL INJ 2MG/ML 2ML 2 MG/ML VIAL ONE (14:08)
[2024-01-04 14:33] LABS: ANION GAP 13.2 mmol/L (8-16); CALCIUM 9.3 mg/dL (8.4-10.2); CREATININE, SERUM 1.2 mg/dL (0.72-1.25); POTASSIUM 4.2 mmol/L (3.5-5.1)
[2024-01-04 16:26] VITALS: TEMP 97.6
[2024-01-04 17:25] VITALS: BP 167/80; PULSE 61; RESP 16; O2SAT 98
== END | disposition home or self-care (01) ==
LOC: OR 12:23
PROVIDERS: ATTEND Urology
DX: N39.46 Mixed incontinence (principal); R33.8 Other retention of urine; Z43.5 Encounter for attention to cystostomy; N35.819 Other urethral stricture, male, unspecified site; N32.89 Other specified disorders of bladder; C61 Malignant neoplasm of prostate; G47.33 Obstructive sleep apnea (adult) (pediatric); E11.9 Type 2 diabetes mellitus without complications; I10 Essential (primary) hypertension; E78.5 Hyperlipidemia, unspecified; K21.9 Gastro-esophageal reflux disease without esophagitis; F41.9 Anxiety disorder, unspecified; F32.A Depression, unspecified; Z88.1 Allergy status to other antibiotic agents; Z79.899 Other long term (current) drug therapy; Z98.890 Other specified postprocedural states; Z90.79 Acquired absence of other genital organ(s); Z86.73 Personal history of transient ischemic attack (TIA), and cerebral infarction without residual deficits
CPT/HCPCS: 36415; 74018; 74420; 80048; 85025; 87086; 87186; 93005; C1758; J0587; J1100; J1580; J2003; J2405

== ENCOUNTER → 2024-04-20 | Day surgery (SDC) | payer MEDICARE, OTHER ==
[~2024-04-20] MED LIST changes: +PHENYLEPHRINE HCL 1% 10 MG/ML VIAL ONE; +SEVOFLURANE INHAL SOLN 250 ML PEN BTL ONE; +SODIUM CHLORIDE 0.9% 100 ML ONE
[2024-04-20 08:46] LABS: BASOPHILS # (AUTO) 0.1 (0.0-0.1); BASOPHILS % 0.8 % (0.0-1.0); EOSINOPHILS # (AUTO) 0.3 (0.0-0.4); EOSINOPHILS % 3.4 % (0.0-6.0); HEMATOCRIT 41.1 % (38.2-49.6); HEMOGLOBIN 13.1 g/dL (14.0-18.0); LYMPHOCYTES # (AUTO) 1.9 (1.0-3.2); LYMPHOCYTES % 23.7 % (18.0-39.1); MEAN CORPUSCULAR HGB CONC 31.9 g/dL (31-35); MEAN CORPUSCULAR VOLUME 91.1 fL (81-99); MONOCYTES # (AUTO) 0.6 (0.2-0.8); MONOCYTES % 7.7 % (4.4-11.3); NEUTROPHILS # (AUTO) 5.1 (2.1-6.9); PLATELET COUNT 232 x10e3/uL (140-360); RED BLOOD COUNT 4.51 x10e6/uL (4.3-5.7); RED CELL DISTRIBUTION WIDTH 13.9 % (11.7-14.4); WHITE BLOOD COUNT 7.93 x10e3/uL (4.8-10.8)
[2024-04-20] MEDS: CEFEPIME HCL 1 GM VIAL ONE (08:48)
[2024-04-20] MEDS: LACTATED RINGER'S 1,000 ML ONE (08:49)
[2024-04-20] MEDS: GENTAMICIN 80MG/NS 100 ML 200 ML IV ONE (08:49)
[2024-04-20 09:08] LABS: ANION GAP 12.9 mmol/L (8-16); CALCIUM 8.9 mg/dL (8.4-10.2); CREATININE, SERUM 1.18 mg/dL (0.72-1.25); POTASSIUM 3.9 mmol/L (3.5-5.1)
[2024-04-20 11:59] VITALS: TEMP 97.3
[2024-04-20 13:00] VITALS: BP 147/78; PULSE 66; RESP 17; O2SAT 95
== END | disposition home or self-care (01) ==
LOC: OR 08:11
PROVIDERS: ATTEND Urology
DX: N39.41 Urge incontinence (principal); R33.8 Other retention of urine; Z43.5 Encounter for attention to cystostomy; N32.89 Other specified disorders of bladder; N31.9 Neuromuscular dysfunction of bladder, unspecified; G47.33 Obstructive sleep apnea (adult) (pediatric); I10 Essential (primary) hypertension; E78.5 Hyperlipidemia, unspecified; E11.9 Type 2 diabetes mellitus without complications; K21.9 Gastro-esophageal reflux disease without esophagitis; F32.A Depression, unspecified; Z88.1 Allergy status to other antibiotic agents; Z79.899 Other long term (current) drug therapy; Z86.73 Personal history of transient ischemic attack (TIA), and cerebral infarction without residual deficits
CPT/HCPCS: 36415; 51710; 52287; 80048; 85025; 87086; 93005; J0131; J0587; J0692; J1100; J1580; J2003; J2371; J2405; J2704; J3010; J7050; J7121

== ENCOUNTER → 2024-07-04 | Day surgery (SDC) | payer MEDICARE, OTHER ==
[~2024-07-04] MED LIST changes: -ACETAMINOPHEN 1000 MG/100 ML 100 ML IV ONE; +CEFDINIR300 MG PO; -DEXAMETHASONE SOD PHOS INJ 4 MG/ML SDV ONE; -FENTANYL CITRATE/PF 100MCG/2 ML INJ ONE; +GLYCOPYRROLATE INJ 0.2 MG/ML VIAL ONE; -LIDOCAINE HCL 2% LOCAL INJ 5 ML SDV VIAL INJ ONE; -ONDANSETRON HCL INJ 2MG/ML 2ML 2 MG/ML VIAL ONE; -PHENYLEPHRINE HCL 1% 10 MG/ML VIAL ONE; -PROPOFOL IV EMULSION 10 MG/ML 20 ML VIAL ONE; -SODIUM CHLORIDE 0.9% 100 ML ONE
[2024-07-04 10:57] LABS: BASOPHILS # (AUTO) 0.1 (0.0-0.1); BASOPHILS % 0.8 % (0.0-1.0); EOSINOPHILS # (AUTO) 0.1 (0.0-0.4); EOSINOPHILS % 1.4 % (0.0-6.0); HEMATOCRIT 43.1 % (38.2-49.6); HEMOGLOBIN 13.3 g/dL (14.0-18.0); LYMPHOCYTES # (AUTO) 1.5 (1.0-3.2); LYMPHOCYTES % 22.9 % (18.0-39.1); MEAN CORPUSCULAR HGB CONC 30.9 g/dL (31-35); MEAN CORPUSCULAR VOLUME 90.7 fL (81-99); MONOCYTES # (AUTO) 0.5 (0.2-0.8); MONOCYTES % 7.3 % (4.4-11.3); NEUTROPHILS # (AUTO) 4.5 (2.1-6.9); NEUTROPHILS % 67.3 % (38.7-80.0); PLATELET COUNT 202 x10e3/uL (140-360); RED BLOOD COUNT 4.75 x10e6/uL (4.3-5.7); RED CELL DISTRIBUTION WIDTH 14.6 % (11.7-14.4)
[2024-07-04 11:22] LABS: ALBUMIN 3.7 g/dL (3.5-5.0); ALBUMIN/GLOBULIN RATIO 1.3 (0.8-2.0); ANION GAP 13.3 mmol/L (8-16); BILIRUBIN,TOTAL 0.4 mg/dL (0.2-1.2); CALCIUM 8.9 mg/dL (8.4-10.2); CREATININE, SERUM 1.11 mg/dL (0.72-1.25); POTASSIUM 4.3 mmol/L (3.5-5.1); TOTAL PROTEIN 6.5 g/dL (6.5-8.1)
[2024-07-04] MEDS: MEROPENEM 1 GM VIAL ONE (14:03)
[2024-07-04] MEDS: SODIUM CHLORIDE 0.9% 1000ML 1,000 ML ONE (14:03)
[2024-07-04 14:40] VITALS: TEMP 97.3
[2024-07-04 15:35] VITALS: BP 157/85; PULSE 68; RESP 16; O2SAT 98
== END | disposition home or self-care (01) ==
LOC: OR 05:00
PROVIDERS: ATTEND Urology
DX: N39.41 Urge incontinence (principal); R33.8 Other retention of urine; N35.919 Unspecified urethral stricture, male, unspecified site; Z43.5 Encounter for attention to cystostomy; Z46.6 Encounter for fitting and adjustment of urinary device; C61 Malignant neoplasm of prostate; N39.0 Urinary tract infection, site not specified; N20.0 Calculus of kidney; G47.33 Obstructive sleep apnea (adult) (pediatric); E11.9 Type 2 diabetes mellitus without complications; I10 Essential (primary) hypertension; E78.5 Hyperlipidemia, unspecified; E66.01 Morbid (severe) obesity due to excess calories; K21.9 Gastro-esophageal reflux disease without esophagitis; F41.9 Anxiety disorder, unspecified; F32.A Depression, unspecified; Z88.1 Allergy status to other antibiotic agents; Z79.899 Other long term (current) drug therapy; Z86.73 Personal history of transient ischemic attack (TIA), and cerebral infarction without residual deficits
CPT/HCPCS: 36415; 51705; 52287; 71046; 80053; 85025; 87086; 87186; J0587; J2185; J7030

== ENCOUNTER → 2024-09-12 | Day surgery (SDC) | payer MEDICARE, OTHER ==
[~2024-09-12] MED LIST changes: +ACETAMINOPHEN 1000 MG/100 ML 100 ML IV ONE; +DEXAMETHASONE SOD PHOS INJ 4 MG/ML SDV ONE; +FAMOTIDINE 20 MG/2 ML VIAL IV ONE; +FENTANYL CITRATE/PF 100MCG/2 ML INJ ONE; +LIDOCAINE HCL 2% LOCAL INJ 5 ML SDV VIAL INJ ONE; +ONDANSETRON HCL INJ 2MG/ML 2ML 2 MG/ML VIAL ONE; +PROPOFOL IV EMULSION 10 MG/ML 20 ML VIAL ONE
[2024-09-12] MEDS: SODIUM CHLORIDE 0.9% 1000ML 1,000 ML ONE (06:44)
[2024-09-12] MEDS: MEROPENEM 1 GM VIAL ONE (06:45)
[2024-09-12 07:02] LABS: BASOPHILS % 0.7 % (0.0-1.0); EOSINOPHILS % 1.7 % (0.0-6.0); LYMPHOCYTES % 21.4 % (18.0-39.1); MONOCYTES % 9.3 % (4.4-11.3); NEUTROPHILS % 66.7 % (38.7-80.0); RED CELL DISTRIBUTION WIDTH 15.1 % (11.7-14.4)
[2024-09-12] MEDS: PHENAZOPYRIDINE HCL 100 MG TAB ONE (10:17)
[2024-09-12 10:25] VITALS: TEMP 97.5
[2024-09-12 10:50] VITALS: BP 154/82; PULSE 72; RESP 15; O2SAT 98
== END | disposition home or self-care (01) ==
LOC: OR 05:50
PROVIDERS: ATTEND Urology
DX: N32.81 Overactive bladder (principal); Z43.5 Encounter for attention to cystostomy; C61 Malignant neoplasm of prostate; R33.8 Other retention of urine; N39.46 Mixed incontinence; N32.89 Other specified disorders of bladder; N32.3 Diverticulum of bladder; E11.9 Type 2 diabetes mellitus without complications; I10 Essential (primary) hypertension; E78.5 Hyperlipidemia, unspecified; J44.9 Chronic obstructive pulmonary disease, unspecified; K29.70 Gastritis, unspecified, without bleeding; F32.A Depression, unspecified; Z88.1 Allergy status to other antibiotic agents; Z79.899 Other long term (current) drug therapy; Z86.73 Personal history of transient ischemic attack (TIA), and cerebral infarction without residual deficits
CPT/HCPCS: 36415; 51710; 52287; 85025; 87086; 87186; 93005; C1758; J0131; J0587; J1100; J1308; J2003; J2185; J2405; J2704; J3010; J7030